=== PATIENT | male | born 1945 | race Caucasian/White ===

== ENCOUNTER 2020-11-26 09:53 | Outpatient (REF) | payer MEDICARE, SELFPAY ==
[2020-11-26 11:32] LABS: MANUAL DIFF FLAG NO
[2020-11-26 11:55] LABS: Basophils Percent Auto 0.5 % (0-2); Eosinophils Absolute Auto 0.1 X10*3/uL (0.0-0.4); Eosinophils Percent Auto 1.1 % (0-4); Hematocrit 45.8 % (42-52); Hemoglobin 15.2 g/dl (14.0-18.0); Imm Gran Abs Auto 0.02 X10*3/uL (0.00-0.03); Imm Gran Pct Auto 0.5 % (0.0-0.4); Lymphocytes Absolute Auto 1.1 X10*3/uL (1.2-4.9); Lymphocytes Percent Auto 25.7 % (20-40); Mean Corpuscular HGB Conc 33.2 g/dl (31.0-36.0); Mean Corpuscular Hemoglobin 30.5 pg (27.0-33.0); Mean Platelet Volume 10.7 fL (9.4-12.4); Monocytes Absolute Auto 0.3 X10*3/uL (0.1-1.2); Monocytes Percent Auto 5.7 % (2-11); Neutrophils Absolute Auto 2.9 X10*3/uL (2.0-8.3); Neutrophils Percent Auto 66.5 % (45-73); Platelet Count 171 X10*3/uL (160-400); Red Blood Count 4.98 X10*6/uL (4.60-5.80); Red Cell Distribution Width 13.1 % (11.0-16.0); White Blood Count 4.4 X10*3/uL (4.8-10.8)
[2020-11-26 12:29] LABS: Alanine Aminotransferase 24 U/L (0-40); Albumin Level 4.2 g/dL (3.5-5.0); Alkaline Phosphatase 51 U/L (39-117); Anion Gap 11 (12-20); Aspartate Amino Transferase 28 U/L (5-37); Blood Urea Nitrogen 18 mg/dL (9-16); Calcium 9.1 mg/dL (8.4-10.2); Carbon Dioxide 26 mmol/L (22-29); Chloride 107 mmol/L (96-108); Estimated Glomerular Filt Rate > 60; Glucose Fasting 100 mg/dL (60-99); Potassium 4.7 mmol/L (3.3-5.1); Sodium 139 mmol/L (135-145); Total Protein 6.7 g/dL (6.5-8.0)
[2020-11-26 12:35] LABS: Estimated Average Glucose 105 mg/dL; Hemoglobin A1c % 5.3 %
[2020-11-26 12:59] LABS: Prostate Specific Antigen 0.39 ng/mL (<0.05-4.0)
== END 2020-11-26 09:54 | disposition home or self-care (01) ==
LOC: HO.MANLDS 09:53
PROVIDERS: PCP Internal Medicine; Visit Provider Physician Assistant
DX: R73.01 Impaired fasting glucose (principal); R35.0 Frequency of micturition
CPT/HCPCS: 36415; 80053; 83036; 84153; 85025

== ENCOUNTER 2022-10-24 08:47 | Outpatient (REF) | payer MEDICARE, SELFPAY ==
[2022-10-24 11:40] LABS: Appearance Urine Clear; Color Urine Yellow; Glucose Urine UA Negative (Negative); Leukocyte Esterase Urine Large (3+) (Negative); Nitrite Urine Negative (Negative); PH 6.5 (5.0-9.0); UMIC TRIGGER UACC YES; Urine Blood Negative (Negative); Urine Ketones Negative (Negative); Urine Protein Negative (Neg-Trace)
[2022-10-24 11:49] LABS: Bacteria Urine 1+ (None Seen); Hyaline Casts Urine 0-2 /LPF (0-2); RBC Urine 0-2 /HPF (0-2); UACC Culture Trigger YES; WBC Urine 21-50 /HPF (0-5)
[2022-10-24 12:15] LABS: Estimated Average Glucose 108 mg/dL; Hemoglobin A1c % 5.4 %
[2022-10-24 12:30] LABS: Alanine Aminotransferase 21 U/L (0-40); Albumin Level 4.3 g/dL (3.5-5.0); Alkaline Phosphatase 58 U/L (39-117); Anion Gap 11 (12-20); Aspartate Amino Transferase 31 U/L (5-37); Bilirubin Total 1.7 mg/dL (0.0-1.0); Blood Urea Nitrogen 17 mg/dL (9-16); Carbon Dioxide 28 mmol/L (22-29); Chloride 103 mmol/L (96-108); Estimated Glomerular Filt Rate > 60; Glucose Random 104 mg/dL (60-115); Potassium 4.7 mmol/L (3.3-5.1); Sodium 137 mmol/L (135-145)
== END 2022-10-24 08:48 | disposition home or self-care (01) ==
LOC: HO.MANLDS 08:47
PROVIDERS: Visit Provider Physician Assistant
DX: N23 Unspecified renal colic (principal); R73.01 Impaired fasting glucose
CPT/HCPCS: 36415; 80053; 81001; 83036; 87086

== ENCOUNTER 2022-11-29 10:39 | Outpatient (REF) | payer MEDICARE, SELFPAY | END 2022-11-29 10:40 | disposition home or self-care (01) | LOC: HO.MANLDS 10:39 | PROVIDERS: Visit Provider Internal Medicine | DX: Z12.5 Encounter for screening for malignant neoplasm of prostate (principal) | CPT/HCPCS: 36415; 84153 ==

== ENCOUNTER 2023-10-12 15:12 | Outpatient (REF) | payer MEDICARE, SELFPAY ==
[2023-10-15 14:38] LABS: Anti Nuclear Antibody Screen NEGATIVE (NEGATIVE)
[2023-10-15 19:13] LABS: Lyme Blot >10.00 index
[2023-10-16 12:24] LABS: Lyme Abs Screen POSITIVE
[2023-10-16 21:13] LABS: 18 KD (IgG) Band REACTIVE; 23 KD (IgG) Band REACTIVE; 23 KD (IgM) Band REACTIVE; 28 KD (IgG) Band REACTIVE; 30 KD (IgG) Band REACTIVE; 39 KD (IgM) Band NON-REACTIVE; 39KD (IgG) Band REACTIVE; 41 KD (IgM) Band NON-REACTIVE; 41KD (IgG) Band REACTIVE; 45 KD (IgG) Band REACTIVE; 58 KD (IgG) Band REACTIVE; 66 KD (IgG) Band REACTIVE; 93 KD (IgG) Band REACTIVE; Lyme IgG Blot Interp POSITIVE (NEGATIVE); Lyme IgM Blot Interp NEGATIVE (NEGATIVE)
== END 2023-10-12 15:13 | disposition home or self-care (01) ==
LOC: HO.MANLDS 15:12
PROVIDERS: Visit Provider Physician Assistant
DX: M54.2 Cervicalgia (principal)
CPT/HCPCS: 36415; 86038; 86617; 86618

== ENCOUNTER 2024-01-02 15:42 | Outpatient (REF) | payer MEDICARE, SELFPAY ==
[2024-01-04 13:19] LABS: Lyme Blot >10.00 index
[2024-01-06 13:19] LABS: Lyme Abs Screen POSITIVE
[2024-01-07 15:28] LABS: 18 KD (IgG) Band REACTIVE; 23 KD (IgG) Band REACTIVE; 23 KD (IgM) Band REACTIVE; 28 KD (IgG) Band REACTIVE; 30 KD (IgG) Band REACTIVE; 39 KD (IgM) Band NON-REACTIVE; 39KD (IgG) Band REACTIVE; 41 KD (IgM) Band NON-REACTIVE; 41KD (IgG) Band REACTIVE; 45 KD (IgG) Band REACTIVE; 58 KD (IgG) Band REACTIVE; 66 KD (IgG) Band REACTIVE; 93 KD (IgG) Band REACTIVE; Lyme IgG Blot Interp POSITIVE (NEGATIVE); Lyme IgM Blot Interp NEGATIVE (NEGATIVE)
[2024-01-14 00:34] LABS: A. Phagocytophilum Ab IgG <1:64 (<1:64); A. Phagocytophilum Ab IgM <1:20 (<1:20); E. Chaffeensis Ab IgG <1:64 (<1:64); E. Chaffeensis Ab IgM <1:20 (<1:20)
== END 2024-01-02 15:43 | disposition home or self-care (01) ==
LOC: HO.MANLDS 15:42
PROVIDERS: Visit Provider Physician Assistant
DX: A69.20 Lyme disease, unspecified (principal)
CPT/HCPCS: 36415; 86617; 86618; 86666

== ENCOUNTER 2024-04-08 11:36 | Outpatient (REF) | payer MEDICARE, SELFPAY ==
[2024-04-08 12:41] LABS: Erythrocyte Sedimentation Rate 2 MM/HR (0-15)
[2024-04-10 07:02] LABS: Lyme Blot >10.00 index
[2024-04-11 16:53] LABS: 18 KD (IgG) Band REACTIVE; 23 KD (IgG) Band REACTIVE; 23 KD (IgM) Band REACTIVE; 28 KD (IgG) Band REACTIVE; 30 KD (IgG) Band REACTIVE; 39 KD (IgM) Band NON-REACTIVE; 39KD (IgG) Band REACTIVE; 41 KD (IgM) Band NON-REACTIVE; 41KD (IgG) Band REACTIVE; 45 KD (IgG) Band REACTIVE; 58 KD (IgG) Band REACTIVE; 66 KD (IgG) Band REACTIVE; 93 KD (IgG) Band REACTIVE; Lyme Abs Screen POSITIVE; Lyme IgG Blot Interp POSITIVE (NEGATIVE); Lyme IgM Blot Interp NEGATIVE (NEGATIVE)
== END 2024-04-08 11:37 | disposition home or self-care (01) ==
LOC: HO.LAB 11:36
PROVIDERS: PCP Internal Medicine; Visit Provider Internal Medicine
DX: A69.20 Lyme disease, unspecified (principal)
CPT/HCPCS: 36415; 85652; 86617; 86618